=== PATIENT | male | born 1980 | race Two or more races ===

== ENCOUNTER 2021-05-19 19:09 | Emergency (ER) | payer SELFPAY ==
[2021-05-19] MEDS ORDERED: Proparacaine 0.5% Ophth Soln 15 ML Bottle EYERT STA (19:48)
[2021-05-19] MEDS ORDERED: Fluorescein 1 MG Ophth Strip EYERT STA (19:48)
[2021-05-19] MEDS ORDERED: Erythromycin Base 0.5% Ophth Oint 1 GM Tube EYERT STA (20:09)
--- NOTE | 2021-05-19 20:14 | EDM.PDOC ---
ED HPI GENERAL MEDICAL PROBLEM - General Chief Complaint: Eye Problems Stated Complaint: SOMETHING IN RIGHT EYE Time Seen by Provider: 05/19/21 19:44 Source of Information: Reports: Patient History Limitations: Reports: No Limitations - History of Present Illness INITIAL COMMENTS - FREE TEXT/NARRATIVE: Mr. Zelaya is a very pleasant 40-year-old gentleman who now presents the ED with a foreign body sensation to his right eye that began last night. 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 He states that he was wearing proper eye protection, and he does not recall getting any metal particles into his eye, but he states that it was windy, and anything could have gotten in. He reports a slight burn to his right eye, although he denies photophobia. He states that he flushed his eye with water, without improvement of his symptoms. No prior right eye injury. Here in the ED, the patient is initially found to be slightly bradycardic at 59 bpm, otherwise, he is hemodynamically stable, afebrile, saturating 100% on room air. He appears to be comfortable, in no acute distress. Prior to last night, the patient denies having a recent fever, chills, sore throat, ear pain, nasal or sinus congestion, cough, dyspnea, chest pain, palpitations, nausea, vomiting, constipation, diarrhea, abdominal pain, urinary symptoms, recent weight gain or weight loss, recent bloody bowel movements or black bowel movements, recent joint aches, headaches, or rashes. The patient does not have a PCP. He has not received a COVID vaccination. - Related Data Allergies Allergy/AdvReac Type Severity Reaction Status Date / Time No Known Allergies Allergy Verified 05/19/21 19:30 Home Meds: Home Meds . [No Known Home Meds] 05/19/21 [History] Past Medical History - Past Surgical History HEENT Surgical History: Reports: Oral Surgery (dental extractions) Social & Family History - Tobacco Use Tobacco Use Status *Q: Never Tobacco User - Alcohol Use Alcohol Use History: Yes Alcohol Use Frequency: Rarely - Recreational Drug Use Recreational Drug Use: No - Living Situation & Occupation Living situation: Reports: , with Spouse, with Family (2 kids) Occupation: Employed (Construction) ED ROS GENERAL - Review of Systems Review Of Systems: Comprehensive ROS is negative, except as noted in HPI. ED EXAM GENERAL W FULL EYE - Physical Exam Exam: See Below Exam Limited By: No Limitations General Appearance: Alert, WD/WN, No Apparent Distress Eyelids: Right: Lid Everted for Exam, Bilateral: Normal Appearance Conjunctiva & Sclera: Right: Normal Appearance Cornea Exam: Right: Foreign Body (4:00 position metallic), Examined with Flourescein Extraocular Movements: Bilateral: Intact Pupils: Normal Accommodation Pupillary Size: Bilateral: 5 mm Pupillary Reaction: Bilateral: Brisk Anterior Chamber: Right: Normal Appearance ED EYE w/ Add Procedure - Eye Procedure Alcaine Drops Administered: Yes (Proparacaine, right eye only) Eye FB Removal: Other (Removed with gavi tool and moistened cotton swab) Antibiotic Oinment/Drps Admin: Right Eye (Erythromycin ophthalmic ointment) Course - Vital Signs Last Recorded V/S: Last Vital Signs Temp 36.9 C 05/19/21 19:28 Pulse 59 L 05/19/21 19:28 Resp 16 05/19/21 19:28 BP 136/82 05/19/21 19:28 Pulse Ox 100 05/19/21 19:28 - Orders/Labs/Meds Meds: Medications Discontinued Medications Generic Name Dose Route Start Last Admin Trade Name Freq PRN Reason Stop Dose Admin Erythromycin 1 gm 05/19/21 20:09 05/19/21 20:20 Erythromycin Base 0.5% Ophth Oint 1 Gm Tube EYERT 05/19/21 20:10 1 cm ONETIME STA Administration Fluorescein Sodium 1 mg 05/19/21 19:48 05/19/21 20:00 Fluorescein 1 Mg Ophth Strip EYERT 05/19/21 19:49 1 mg ONETIME STA Administration Proparacaine HCl 1 ml 05/19/21 19:48 05/19/21 20:00 Proparacaine 0.5% Ophth Soln 15 Ml Bottle EYERT 05/19/21 19:49 3 drop ONETIME STA Administration - Re-Assessments/Exams Free Text/Narrative Re-Assessment/Exam: 05/19/21 20:08 As above, the patient developed a foreign body sensation in his right eye last night after welding yesterday. He irrigated his eye without relief of symptoms. On examination with fluorescein under a Hess lamp, a small foreign body versus corneal injury was noted at the 4:00 position. Under a slit lamp, a metallic foreign body was visible. The foreign body was removed with a gavi tool and a moistened cotton-tipped swab. The patient tolerated the procedure well. I have ordered erythromycin ophthalmic ointment that his nurse can instill, show him how to do it, then give him the tube. He can instill a 1 cm ribbon of ointment into his lower eyelid up to 6 times a day over the weekend as needed cor discomfort. If he is still having discomfort by Saturday, I would like him to follow-up with an eye doctor. Departure - Departure Time of Disposition: 20:12 Disposition: Home, Self-Care 01 Condition: Good Clinical Impression: Foreign body in cornea, right eye, initial encounter - Discharge Information *PRESCRIPTION DRUG MONITORING PROGRAM REVIEWED*: Not Applicable *COPY OF PRESCRIPTION DRUG MONITORING REPORT IN PATIENT DWAIN: Not Applicable Instructions: Eye Foreign Body, [id number] Referrals: PCP,None [Primary Care Provider] - Forms: ED Department Discharge Additional Instructions: You were seen in the emergency room after developing a foreign body sensation to your right eye last night, after welding yesterday. On examination in the ER, a metallic foreign body was found at the 4 o'clock position of your right cornea. The foreign body was removed in the ER. Your nurse has instilled erythromycin ophthalmic ointment into your right eye, and showed you how to do it. You were given the tube. We recommend that you instill a 1 cm ribbon into your lower right eyelid up to 6 times a day, for the next few days, as needed for discomfort. If you are still having significant discomfort by 05/22/2021, please follow-up with an eye doctor for reevaluation. If any other problems, please do not hesitate to return to the ER. Sepsis Event Note (ED) - Focused Exam Vital Signs: Vital Signs Temp Pulse Resp BP Pulse Ox 05/19/21 19:28 36.9 C 59 L 16 136/82 100
== END 2021-05-19 20:35 | disposition home or self-care (01) ==
LOC: JD.ED 19:09
DX: T15.01XA Foreign body in cornea, right eye, initial encounter (principal)
CPT/HCPCS: 65220; 99283; A9270; 65222